=== PATIENT | male | born 1995 | race Caucasian/White ===

== ENCOUNTER 2020-05-01 20:26 | Emergency (ER) | payer BC ==
[2020-05-01] MEDS ORDERED: Clindamycin HCl 150 MG Cap PO ONE (20:27)
[2020-05-01] MEDS ORDERED: Acetaminophen/HYDROcodone 325-10 MG Tab PO ONE (20:27)
--- NOTE | 2020-05-01 20:35 | EDM.PDOC ---
ED HPI GENERAL MEDICAL PROBLEM - General Chief Complaint: Skin Complaint Stated Complaint: INFECTED TOE LEFT FOOT Time Seen by Provider: 05/01/20 20:33 Source of Information: Reports: Patient History Limitations: Reports: No Limitations - History of Present Illness INITIAL COMMENTS - FREE TEXT/NARRATIVE: left toe infection past few days worse tonight. tried soaking but not working. tried opening it up but unsuccessful. Left Toe-Hailux Pain Score (Numeric/FACES): 6 - Related Data Allergies Allergy/AdvReac Type Severity Reaction Status Date / Time No Known Allergies Allergy Verified 05/01/20 20:43 ED ROS GENERAL - Review of Systems Review Of Systems: Comprehensive ROS is negative, except as noted in HPI. ED EXAM, SKIN/RASH Exam: See Below Exam Limited By: No Limitations General Appearance: Alert, WD/WN, Mild Distress, Moderate Distress, Other (pain tearful) Ears: Hearing Grossly Normal Throat/Mouth: Normal Voice, No Airway Compromise Head: Atraumatic Neck: Non-Tender, Full Range of Motion Respiratory/Chest: No Respiratory Distress Cardiovascular: Regular Rate, Rhythm GI/Abdominal: Soft, Non-Tender (Male) Exam: Deferred Rectal (Males) Exam: Deferred Extremities: Other (left big toe abscess distal phalanx, NV wnl) Neurological: Alert, Oriented, Normal Cognition, No Motor/Sensory Deficits, Other (gait limited to pain) Psychiatric: Tearful Skin: Warm, Dry, Normal Color Location, Skin: Lower Extremity, Left Characteristics: Erythematous Associated features: Warmth, Tenderness, Swelling, Inflammation Lymphatic: No Adenopathy ED SKIN PROCEDURES - I&D Site: left big toe distal palanx Skin Prep: Providone-Iodine (Betadine) Local Anesthesia: Lidocaine: 1% Plain Local Anesthetic Volume: 4cc Area Incised With: 11 Blade Drainage: Purulent, Bloody, Small Amount Probed to Break Up Loculations: No Packed With: None Sterile Dressinx4(s) Complications: No Course - Vital Signs Last Recorded V/S: Last Vital Signs Temp 35.8 C L 05/01/20 20:37 Pulse 70 05/01/20 20:37 Resp 19 05/01/20 20:37 BP 151/84 H 05/01/20 20:37 Pulse Ox 98 05/01/20 20:37 - Orders/Labs/Meds Orders: Active Orders 24 hr Category Date Time Status CULTURE BLOOD [BC] Stat Lab 05/01/20 20:40 Received Labs: Laboratory Tests 05/01/20 05/01/20 05/01/20 Range/Units 20:40 20:40 20:40 WBC 10.5 H (5.0-10.0) 10^3/uL RBC 4.69 (4.6-6.2) 10^6/uL Hgb 14.7 (14.0-18.0) g/dL Hct 42.8 (40.0-54.0) % MCV 91.3 (80-100) fL MCH 31.3 (27.0-34.0) pg MCHC 34.3 (33.0-35.0) g/dL Plt Count 323 (150-450) 10^3/uL Neut % (Auto) 50.4 (42.2-75.2) % Lymph % (Auto) 32.2 (20.5-50.1) % [place] % (Auto) 15.0 H (2-8) % Eos % (Auto) 1.6 (1.0-3.0) % Baso % (Auto) 0.8 (0.0-1.0) % Sodium 140 (136-145) mmol/L Potassium 3.9 (3.5-5.1) mmol/L Chloride 104 (98-107) mmol/L Carbon Dioxide 26 (21-32) mmol/L Anion Gap 13.9 H (7-13) mEq/L BUN 15 (7-18) mg/dL Creatinine 0.94 (0.70-1.30) mg/dL Est Cr Clr Drug Dosing TNP Estimated GFR (MDRD) > 60 BUN/Creatinine Ratio 16.0 (No establ ref range) Glucose 81 (74-99) mg/dL Lactic Acid 2.0 (0.4-2.0) mmol/L Calcium 9.0 (8.5-10.1) mg/dL Total Bilirubin 0.2 (0.2-1.0) mg/dL AST 50 H (15-37) U/L ALT 111 H (16-63) U/L Alkaline Phosphatase 82 (46-116) U/L Total Protein 7.7 (6.4-8.2) g/dL Albumin 3.9 (3.4-5.0) g/dL Globulin 3.8 Albumin/Globulin Ratio 1.0 Meds: Medications Discontinued Medications Generic Name Dose Route Start Last Admin Trade Name Freq PRN Reason Stop Dose Admin Fentanyl 50 mcg 05/01/20 20:32 05/01/20 20:53 Sublimaze IVPUSH 05/01/20 20:33 50 mcg ONETIME ONE Administration Fentanyl 50 mcg 05/01/20 21:34 Sublimaze IVPUSH 05/01/20 21:35 ONETIME ONE Clindamycin Phosphate 900 mg/ 106 mls @ 200 mls/hr 05/01/20 20:32 05/01/20 20:55 Sodium Chloride IV 05/01/20 21:03 200 mls/hr ONETIME ONE Administration Sodium Chloride 1,000 mls @ 999 mls/hr 05/01/20 20:32 05/01/20 20:55 Normal Saline IV 05/01/20 21:32 999 mls/hr .BOLUS ONE Administration Lidocaine HCl 30 ml 05/01/20 20:53 05/01/20 20:59 Xylocaine-Mpf 1% INJECT 05/01/20 20:54 30 ml ONETIME ONE Administration Midazolam HCl 2 mg 05/01/20 21:37 05/01/20 21:48 Versed 1 Mg/Ml IVPUSH 05/01/20 21:38 2 mg ONETIME ONE Administration Ondansetron HCl 4 mg 05/01/20 20:32 05/01/20 20:51 Zofran IVPUSH 05/01/20 20:33 4 mg ONETIME ONE Administration Departure - Departure Time of Disposition: 22:20 Disposition: Home, Self-Care 01 Condition: Good Clinical Impression: Abscess of toe, left - Discharge Information Instructions: Skin Abscess, [id number] Forms: ED Department Discharge Additional Instructions: 1) keep wound clean dry covered 2) continue hot soaks twice daily 3) follow up at clinic rx given; clindamycin 300mg qid x 40 vicodin 5/325mg tid prn x 12 Sepsis Event Note (ED) - Focused Exam Vital Signs: Vital Signs Temp Pulse Resp BP Pulse Ox 05/01/20 20:37 35.8 C L 70 19 151/84 H 98 - My Orders Last 24 Hours: My Active Orders 05/01/20 20:40 CULTURE BLOOD [BC] Stat - Assessment/Plan Last 24 Hours: My Active Orders 05/01/20 20:40 CULTURE BLOOD [BC] Stat
[2020-05-01] MEDS: Ondansetron 4 MG/2 ML SDV IVPUSH ONE (20:51)
[2020-05-01] MEDS: fentaNYL 100 MCG/2 ML SDV IVPUSH ONE (20:53)
[2020-05-01] MEDS: Clindamycin Phosphate 900 MG in Sodium Chloride 0.9% 100 ML IV ONE (20:55)
[2020-05-01] MEDS: Sodium Chloride 0.9% 1,000 ML IV ONE (20:55)
[2020-05-01] MEDS: Lidocaine 1% 30 ML SDV INJECT ONE (20:59)
[2020-05-01 21:05] LABS: ANION GAP 13.9 mEq/L (7-13); CHLORIDE,CL 104 mmol/L (98-107); SODIUM,NA 140 mmol/L (136-145)
[2020-05-01] MEDS ORDERED: fentaNYL 100 MCG/2 ML SDV IVPUSH ONE (21:34)
[2020-05-01] MEDS: Midazolam 1 MG/ML 2 ML SDV IVPUSH ONE (21:48)
[2020-05-01] MEDS: Clindamycin HCl 150 MG Cap ONE (22:25)
[2020-05-01] MEDS: Acetaminophen/HYDROcodone 325-10 MG Tab ONE (22:25)
[2020-05-01] MEDS: Acetaminophen/HYDROcodone 325-10 MG Tab PO ONE (22:27)
== END 2020-05-01 22:33 | disposition home or self-care (01) ==
LOC: DL.ED 20:26
DX: L02.612 Cutaneous abscess of left foot (principal)
CPT/HCPCS: 10060; 36415; 80053; 83605; 85025; 87040; 87070; 96365; 96375; 99283; A9270; J2001; J2250; J2405; J3010; J3490; J7030; J7050